=== PATIENT | male | born 1950 | race Two or more races ===

== ENCOUNTER 2021-06-15 05:55 | Inpatient (IN) | payer OTHER ==
[~2021-06-15] VITALS: Ht 177.8 cm; Wt 84.1 kg
[2021-06-15 07:31] LABS: Calcium 7.9 mg/dL (8.5-10.1); Potassium 3.7 mmol/L (3.5-5.1)
[2021-06-15 07:36] LABS: BUN/Creatinine Ratio 13.1
[2021-06-15 07:39] LABS: Hematocrit 33.1 % (41.0-53.0); White Blood Cell 13.5 10^3/uL (4.4-10.8)
[2021-06-15 07:41] LABS: Hemoglobin 11.2 g/dL (13.5-17.5); Mean Corpuscular Hemoglobin 30.6 pg (28.0-32.0); Mean Corpuscular Hgb Conc. 33.9 g/dL (32.0-36.0); Mean Corpuscular Volume 90.2 fL (80.0-100.0); Red Blood Cells 3.67 10^6/uL (4.5-5.90); Red Cell Distribution Width 14.5 % (11.8-14.3)
[2021-06-15] MEDS ORDERED: ACETAMINOPHEN 500 MG TAB PO ONE (07:45)
[2021-06-15 07:53] LABS: Basophils % (manual) 0 (0.0-2.0); Blast Cells 0; Eosinophils % (manual) 0 (0-7); Metamyelocytes % 0; Myelocytes % 0; Promyelocytes % 0; Reactive Lymphocytes 0
[2021-06-15] MEDS ORDERED: ENOXAPARIN SOD 80 MG/0.8ML SYRINGE SC ONE (08:00)
[2021-06-15] MEDS ORDERED: ASPirin 81 mg TAB PO ONE (08:00)
[2021-06-15 08:57] LABS: Band Neutrophils % (manual) 3; Lymphocytes % (manual) 9 (10.0-50.0); Monocytes % (manual) 6 (0-12)
[2021-06-15] MEDS ORDERED: AZITHROMYCIN 500MG/ 250ML 250 ML IV ONE (09:00)
[2021-06-15] MEDS ORDERED: cefTRIAXone 1GM/50ML D5W 50 ML IV ONE (09:00)
[2021-06-15] MEDS ORDERED: IOHEXOL 350 MG/ML 100ML IJ ONE (10:01)
[2021-06-15 11:20] LABS: Urine WBC None Seen /hpf (0 - 3)
[2021-06-15] MEDS ORDERED: HEPARIN SODIUM (PORCINE) 5000 UNITS/ML 1ML VIAL IV ONE (11:30)
[2021-06-15 12:01] LABS: Urine Bacteria NONE SEEN /hpf (None Seen); Urine Blood Negative /uL (Negative); Urine Specific Gravity 1.015 (1.001-1.035)
[2021-06-15] MEDS ORDERED: ACETAMINOPHEN 325 MG TAB PO PRN (12:45)
[2021-06-15] MEDS ORDERED: MORPHINE SULFATE 4 MG/ML SYR/VIAL IV PRN (12:45)
[2021-06-15] MEDS ORDERED: ONDANSETRON HCL 4 MG/2 ML VIAL IV PRN (12:45)
[2021-06-15] MEDS ORDERED: HYDROcodone-ACET 5/325MG TAB PO PRN (12:45)
[2021-06-15] MEDS ORDERED: NITROGLYCERIN 0.4 MG SL TAB SL PRN (12:45)
[2021-06-15] MEDS ORDERED: MORPHINE SULFATE INJECTION 2 MG/ML SYRG IV PRN (12:45)
[2021-06-15] MEDS ORDERED: DEXTROSE (50%) 50ML SYRG IV PRN (13:00)
[2021-06-15] MEDS ORDERED: HEPARIN DRIP/D5W 100UNITS/ML 250 ML IV SCH (13:30)
[2021-06-15 15:32] LABS: INR 1.21 (0.9-1.15); Partial Thromboplastin Time 32.4 sec (23.6-33.0)
[2021-06-15] MEDS: InsuLIN REG 1unit/0.01ml Soln (100units/ml) SC SCH ×2 (17:00→22:00)
[2021-06-15] MEDS: ACCU-CHEK COMFORT CURVE STRIP VI SCH ×2 (17:23→22:00)
[2021-06-15 20:33] VITALS: BP 137/74
[2021-06-15] MEDS ORDERED: BUDESONIDE (INHALATION) 180 MCG IH IN SCH (22:00)
[2021-06-15 22:23] LABS: INR 1.16 (0.9-1.15)
[2021-06-15] MEDS: HEPARIN DRIP/D5W 100UNITS/ML 250 ML IV SCH (23:49)
[2021-06-15] MEDS: BUDESONIDE (INHALATION) 0.5 MG/2 ML NEB NEB SCH (23:58)
[2021-06-16] MEDS ORDERED: METO-289 PO (00:21)
[2021-06-16] MEDS ORDERED: AMLO5CAP40 PO (00:21)
[2021-06-16] MEDS ORDERED: LOVA20TA4 PO (00:21)
[2021-06-16] MEDS ORDERED: GLIM4TAB42 PO (00:21)
[2021-06-16] MEDS ORDERED: METF-370 PO (00:21)
[2021-06-16] MEDS ORDERED: CHLO25TA2 PO (00:21)
[2021-06-16] MEDS: THROAT LOZENGES(CEPASTAT) MT PRN ×2 (04:51→12:23)
[2021-06-16 05:30] VITALS: BP 145/100
[2021-06-16] MEDS: InsuLIN REG 1unit/0.01ml Soln (100units/ml) SC SCH ×4 (06:14→21:30)
[2021-06-16] MEDS: ACCU-CHEK COMFORT CURVE STRIP VI SCH ×4 (06:15→21:30)
[2021-06-16] MEDS: BUDESONIDE (INHALATION) 0.5 MG/2 ML NEB NEB SCH (06:15)
[2021-06-16 06:51] LABS: INR 1.17 (0.9-1.15); Partial Thromboplastin Time 38.4 sec (23.6-33.0)
[2021-06-16 06:53] LABS: Potassium 4.1 mmol/L (3.5-5.1)
[2021-06-16 06:57] LABS: Basophils # (auto) 0 10 ^3/uL (0-0.2); Basophils % (auto) 0.3 % (0.0-2.0); Eosinophils # (auto) 0.1 10 ^3/uL (0-0.8); Mean Corpuscular Hemoglobin 30.8 pg (28.0-32.0); Neutrophils # (auto) 7.7 10 ^3/uL (1.6-8.6); Nucleated Red Blood Cells % 0.1 %
[2021-06-16 07:00] LABS: BUN/Creatinine Ratio 9.2; Bilirubin, Total 0.7 mg/dL (0.2-1.0); Calcium 7.5 mg/dL (8.5-10.1); Eosinophils % (auto) 0.5 % (0.0-7.0); Hematocrit 32.7 % (41.0-53.0); Hemoglobin 11.1 g/dL (13.5-17.5); Lymphocytes # (auto) 1.8 10 ^3/uL (0.4-5.4); Lymphocytes % (auto) 16.6 % (10.0-50.0); Mean Corpuscular Volume 90.5 fL (80.0-100.0); Monocytes % (auto) 9.9 % (0.0-12.0); Neutrophils % (auto) 72.7 % (37.0-80.0); Red Blood Cells 3.62 10^6/uL (4.5-5.90); Red Cell Distribution Width 14.4 % (11.8-14.3); Total Protein 6.1 g/dL (6.4-8.2); White Blood Cell 10.6 10^3/uL (4.4-10.8)
[2021-06-16 07:38] LABS: INR 1.19 (0.9-1.15); Partial Thromboplastin Time 44.3 sec (23.6-33.0)
[2021-06-16 09:00] VITALS: BP 133/71
[2021-06-16] MEDS: AZITHROMYCIN 500MG/ 250ML 250 ML IV SCH (09:37)
[2021-06-16] MEDS: DexAMETHasone SOD PHOS 10MG/1ML VIAL INJ IV SCH (09:37)
[2021-06-16] MEDS: ASPirin 81 mg TAB PO SCH (09:37)
[2021-06-16] MEDS: cefTRIAXone 1GM/50ML D5W 50 ML IV SCH (09:37)
[2021-06-16] MEDS: CHOLECALCIFEROL (VITD3) 2,000 UNIT CAP/TAB PO SCH (09:38)
[2021-06-16] MEDS: ASCORBIC ACID 1,000 MG TAB PO SCH (09:38)
[2021-06-16] MEDS: ZINC SULFATE 220mg CAP or TAB PO SCH (09:38)
[2021-06-16] MEDS ORDERED: REMDESIVIR PER PHARMACY 0 ML IV SCH (10:00)
[2021-06-16 12:15] VITALS: BP 145/87
[2021-06-16 14:12] LABS: INR 1.2 (0.9-1.15)
[2021-06-16 14:15] LABS: Partial Thromboplastin Time 80.3 sec (23.6-33.0)
[2021-06-16] MEDS ORDERED: REMDESIVIR 200 MG in NS 210ml LOADING DOSE ADULT IV ONE (15:00)
[2021-06-16 16:21] VITALS: BP 145/79
[2021-06-16] MEDS: HEPARIN DRIP/D5W 100UNITS/ML 250 ML IV SCH (18:49)
[2021-06-16] MEDS: BUDESONIDE (INHALATION) 180 MCG IH IN SCH (21:14)
[2021-06-16 22:00] VITALS: BP 153/79
[2021-06-16 22:28] LABS: INR 1.2 (0.9-1.15); Partial Thromboplastin Time 60.5 sec (23.6-33.0)
[2021-06-17] MEDS: HEPARIN DRIP/D5W 100UNITS/ML 250 ML IV SCH ×3 (04:56→23:45)
[2021-06-17 05:00] VITALS: BP 141/80
[2021-06-17] MEDS: InsuLIN REG 1unit/0.01ml Soln (100units/ml) SC SCH ×4 (06:15→21:55)
[2021-06-17 06:17] LABS: Mean Corpuscular Hgb Conc. 33.8 g/dL (32.0-36.0)
[2021-06-17] MEDS: ACCU-CHEK COMFORT CURVE STRIP VI SCH ×4 (06:17→21:57)
[2021-06-17 06:19] LABS: Hematocrit 31.3 % (41.0-53.0); Hemoglobin 10.6 g/dL (13.5-17.5); Mean Corpuscular Volume 88.7 fL (80.0-100.0); Red Blood Cells 3.53 10^6/uL (4.5-5.90); Red Cell Distribution Width 14.4 % (11.8-14.3); White Blood Cell 10.6 10^3/uL (4.4-10.8)
[2021-06-17 06:22] LABS: INR 1.2 (0.9-1.15); Partial Thromboplastin Time 45.4 sec (23.6-33.0)
[2021-06-17 06:29] LABS: Potassium 4.1 mmol/L (3.5-5.1)
[2021-06-17 06:39] LABS: Basophils % (manual) 0 (0.0-2.0); Blast Cells 0; Eosinophils % (manual) 0 (0-7); Metamyelocytes % 0; Myelocytes % 0; Promyelocytes % 0; Reactive Lymphocytes 0
[2021-06-17 06:47] LABS: Albumin 2.1 g/dL (3.4-5.0); BUN/Creatinine Ratio 14.3; Bilirubin, Total 0.5 mg/dL (0.2-1.0); Calcium 8.3 mg/dL (8.5-10.1); Total Protein 6.2 g/dL (6.4-8.2)
[2021-06-17 08:34] VITALS: BP 125/71
[2021-06-17 08:42] LABS: Band Neutrophils % (manual) 5; Lymphocytes % (manual) 10 (10.0-50.0); Monocytes % (manual) 7 (0-12)
[2021-06-17] MEDS: cefTRIAXone 1GM/50ML D5W 50 ML IV SCH (09:54)
[2021-06-17] MEDS: ZINC SULFATE 220mg CAP or TAB PO SCH (09:55)
[2021-06-17] MEDS: DexAMETHasone SOD PHOS 10MG/1ML VIAL INJ IV SCH (09:55)
[2021-06-17] MEDS: ASPirin 81 mg TAB PO SCH (09:55)
[2021-06-17] MEDS: CHOLECALCIFEROL (VITD3) 2,000 UNIT CAP/TAB PO SCH (09:56)
[2021-06-17] MEDS: ASCORBIC ACID 1,000 MG TAB PO SCH (09:56)
[2021-06-17] MEDS: BUDESONIDE (INHALATION) 180 MCG IH IN SCH ×2 (10:00→19:45)
[2021-06-17] MEDS: AZITHROMYCIN 500MG/ 250ML 250 ML IV SCH (11:40)
[2021-06-17 11:52] LABS: INR 1.21 (0.9-1.15); Partial Thromboplastin Time 42.6 sec (23.6-33.0)
[2021-06-17 12:30] VITALS: BP 139/74
[2021-06-17] MEDS: REMDESIVIR 100mg 100 MG in SODIUM CHL 0.9% 230 ML IV SCH (14:56)
[2021-06-17 16:51] VITALS: BP 134/78
[2021-06-17 18:24] LABS: INR 1.24 (0.9-1.15); Partial Thromboplastin Time 50.4 sec (23.6-33.0)
[2021-06-17] MEDS: ALBUTEROL SULF HFA 90MCG INH 200DOSE IN PRN (19:45)
[2021-06-17 21:30] VITALS: BP 145/66
[2021-06-17] MEDS: THROAT LOZENGES(CEPASTAT) MT PRN (21:57)
[2021-06-18 02:35] LABS: INR 1.24 (0.9-1.15); Partial Thromboplastin Time 41.5 sec (23.6-33.0)
[2021-06-18 05:00] VITALS: BP 145/75
[2021-06-18] MEDS: ACCU-CHEK COMFORT CURVE STRIP VI SCH ×4 (06:10→21:45)
[2021-06-18] MEDS: InsuLIN REG 1unit/0.01ml Soln (100units/ml) SC SCH ×4 (06:15→21:48)
[2021-06-18 07:05] LABS: BUN/Creatinine Ratio 17.6; Calcium 8.3 mg/dL (8.5-10.1); Potassium 4.2 mmol/L (3.5-5.1)
[2021-06-18 07:12] LABS: Bilirubin, Total 0.4 mg/dL (0.2-1.0); Total Protein 5.9 g/dL (6.4-8.2)
[2021-06-18 09:00] VITALS: BP 153/85
[2021-06-18] MEDS ORDERED: LACTULOSE 20Gm/30ML SOLN PO ONE (09:15)
[2021-06-18 10:03] VITALS: BP 153/85
[2021-06-18 10:15] LABS: INR 1.3 (0.9-1.15); Partial Thromboplastin Time 68.3 sec (23.6-33.0)
[2021-06-18] MEDS ORDERED: SENNA 8.6 MG TAB PO PRN (11:00)
[2021-06-18] MEDS ORDERED: POLYETHYLENE GLYCOL 17 GM PWDR PO PRN (11:00)
[2021-06-18] MEDS ORDERED: DOCUSATE SOD 100 MG CAP PO PRN (11:00)
[2021-06-18] MEDS: DexAMETHasone SOD PHOS 10MG/1ML VIAL INJ IV SCH (11:32)
[2021-06-18] MEDS: cefTRIAXone 1GM/50ML D5W 50 ML IV SCH (11:32)
[2021-06-18] MEDS: ASCORBIC ACID 1,000 MG TAB PO SCH (11:33)
[2021-06-18] MEDS: CHOLECALCIFEROL (VITD3) 2,000 UNIT CAP/TAB PO SCH (11:33)
[2021-06-18] MEDS: ZINC SULFATE 220mg CAP or TAB PO SCH (11:33)
[2021-06-18] MEDS: ASPirin 81 mg TAB PO SCH (11:33)
[2021-06-18] MEDS: AZITHROMYCIN 500MG/ 250ML 250 ML IV SCH (11:34)
[2021-06-18] MEDS: HEPARIN DRIP/D5W 100UNITS/ML 250 ML IV SCH (11:52)
[2021-06-18 12:30] VITALS: BP 160/73
[2021-06-18] MEDS: REMDESIVIR 100mg 100 MG in SODIUM CHL 0.9% 230 ML IV SCH (14:35)
[2021-06-18] MEDS: BUDESONIDE (INHALATION) 180 MCG IH IN SCH ×2 (15:28→22:00)
[2021-06-18] MEDS: ALBUTEROL SULF HFA 90MCG INH 200DOSE IN PRN ×2 (15:28→23:17)
[2021-06-18 15:42] LABS: INR 1.3 (0.9-1.15); Partial Thromboplastin Time 53.2 sec (23.6-33.0)
[2021-06-18] MEDS ORDERED: hydrALAZINE HCL 20 MG/ML VL IV PRN (16:15)
[2021-06-18 16:25] VITALS: BP 148/76
[2021-06-18] MEDS: APIXABAN 5 MG TAB PO SCH (17:03)
[2021-06-18 21:59] VITALS: BP 155/73
[2021-06-19] MEDS: APIXABAN 5 MG TAB PO SCH ×2 (05:00→17:00)
[2021-06-19 05:34] VITALS: BP 154/75
[2021-06-19] MEDS: ALBUTEROL SULF HFA 90MCG INH 200DOSE IN PRN (06:15)
[2021-06-19] MEDS: BUDESONIDE (INHALATION) 180 MCG IH IN SCH (06:15)
[2021-06-19] MEDS: ACCU-CHEK COMFORT CURVE STRIP VI SCH ×3 (06:21→17:00)
[2021-06-19] MEDS: InsuLIN REG 1unit/0.01ml Soln (100units/ml) SC SCH ×3 (06:25→17:00)
[2021-06-19 07:17] LABS: Albumin 2.2 g/dL (3.4-5.0); BUN/Creatinine Ratio 18.9; Calcium 8.5 mg/dL (8.5-10.1); Potassium 4.8 mmol/L (3.5-5.1)
[2021-06-19 08:14] LABS: Bilirubin, Total 0.4 mg/dL (0.2-1.0)
[2021-06-19 08:44] VITALS: BP 146/79
[2021-06-19] MEDS: cefTRIAXone 1GM/50ML D5W 50 ML IV SCH (10:21)
[2021-06-19] MEDS: DexAMETHasone SOD PHOS 10MG/1ML VIAL INJ IV SCH (10:21)
[2021-06-19] MEDS: ASCORBIC ACID 1,000 MG TAB PO SCH (10:22)
[2021-06-19] MEDS: ZINC SULFATE 220mg CAP or TAB PO SCH (10:22)
[2021-06-19] MEDS: AZITHROMYCIN 500MG/ 250ML 250 ML IV SCH (10:22)
[2021-06-19] MEDS: ASPirin 81 mg TAB PO SCH (10:22)
[2021-06-19] MEDS: CHOLECALCIFEROL (VITD3) 2,000 UNIT CAP/TAB PO SCH (10:23)
[2021-06-19 13:00] VITALS: BP 150/77
[2021-06-19] MEDS: REMDESIVIR 100mg 100 MG in SODIUM CHL 0.9% 230 ML IV SCH (15:00)
[2021-06-19 16:11] VITALS: BP 146/74
[2021-06-25] MEDS ORDERED: APIXABAN 5 MG TAB PO SCH (17:00)
== END 2021-06-19 17:30 | disposition home or self-care (01) | DRG 177 ==
LOC: EDBD 05:55 → ER 05:55 → TELE 12:51 → TELE-EAST 22:30
PROVIDERS: ADMIT Internal Medicine; ATTEND Internal Medicine
PROC: XW033E5 Introduction of Remdesivir Anti-infective into Peripheral Vein, Percutaneous Approach, New Technology Group 5 (ICD-10-PCS; principal; 2021-06-16)
DX: U07.1 COVID-19 (principal); J12.82 Pneumonia due to coronavirus disease 2019; I26.99 Other pulmonary embolism without acute cor pulmonale; J96.01 Acute respiratory failure with hypoxia; E87.1 Hypo-osmolality and hyponatremia; E66.9 Obesity, unspecified; E11.65 Type 2 diabetes mellitus with hyperglycemia; I10 Essential (primary) hypertension; Z78.9 Other specified health status; Z79.01 Long term (current) use of anticoagulants; Z68.25 Body mass index [BMI] 25.0-25.9, adult
CPT/HCPCS: 36415; 70450; 71275; 73562; 80048; 80053; 81001; 82728; 82962; 84484; 85007; 85025; 85027; 85610; 85730; 86141; 87426; 93005; 93306; 93970; 94640; 95819; 96365; 96367; 96372; 99291; G0378; J0696; J1100; J1815

== ENCOUNTER 2022-10-12 21:14 | Inpatient (IN) | payer OTHER ==
[~2022-10-12] VITALS: Ht 167.6 cm; Wt 88.5 kg
[~2022-10-12 21:14] MED LIST: AMLO5CAP40 PO; CHLO25TA2 PO; GLIM4TAB42 PO; LOVA20TA4 PO; METF-370 PO; METO-289 PO
[2022-10-12 22:16] VITALS: BP 156/73
[2022-10-12] MEDS ORDERED: NITROGLYCERIN 0.4 MG SL TAB SL PRN (23:00)
[2022-10-12] MEDS ORDERED: DOCUSATE SOD 100 MG CAP PO PRN (23:00)
[2022-10-12] MEDS ORDERED: ONDANSETRON HCL 4 MG/2 ML VIAL IV PRN (23:00)
[2022-10-12] MEDS ORDERED: MORPHINE SULFATE INJ 2 MG/ml SYRG IV PRN (23:00)
[2022-10-12] MEDS ORDERED: DEXTROSE (50%) 50ML SYRG IV PRN (23:00)
[2022-10-12] MEDS ORDERED: ACETAMINOPHEN 325 MG TAB PO PRN (23:00)
[2022-10-12] MEDS ORDERED: VANCOMYCIN PER PHARMACY 0 MG IV SCH (23:00)
[2022-10-12] MEDS ORDERED: VANCOMYCIN 1GM/250ML 250 ML IV ONE (23:30)
[2022-10-12] MEDS: HYDROcodone-ACET 5/325MG TAB PO PRN (23:37)
[2022-10-12] MEDS: SODIUM CHLORIDE 0.9% 1,000 ML IV SCH (23:45)
[2022-10-13 00:15] LABS: Basophils # (auto) 0 10 ^3/uL (0-0.2); Basophils % (auto) 0.1 % (0.0-2.0); Eosinophils # (auto) 0.3 10 ^3/uL (0-0.8); Eosinophils % (auto) 1.9 % (0.0-7.0); Hematocrit 28.6 % (41.0-53.0); Lymphocytes # (auto) 2.2 10 ^3/uL (0.4-5.4); Lymphocytes % (auto) 15.1 % (10.0-50.0); Mean Corpuscular Hemoglobin 27.7 pg (28.0-32.0); Mean Corpuscular Volume 79.2 fL (80.0-100.0); Monocytes % (auto) 6.5 % (0.0-12.0); Neutrophils # (auto) 11.2 10 ^3/uL (1.6-8.6); Neutrophils % (auto) 76.4 % (37.0-80.0); Nucleated Red Blood Cells % 0.4 %; Red Blood Cells 3.61 10^6/uL (4.5-5.90); Red Cell Distribution Width 14.1 % (11.8-14.3); White Blood Cell 14.6 10^3/uL (4.4-10.8)
[2022-10-13 00:23] LABS: BUN/Creatinine Ratio 21.9 (10.0-20.0); Calcium 9.7 mg/dL (8.5-10.1); Potassium 4.3 mmol/L (3.5-5.1)
[2022-10-13] MEDS: PIPERACILLIN-TAZOB 3.375GM 100 ML IV SCH ×3 (01:37→14:59)
[2022-10-13] MEDS: HYDROcodone-ACET 5/325MG TAB PO PRN ×5 (04:30→21:35)
[2022-10-13 05:07] VITALS: BP 137/54
[2022-10-13 05:46] LABS: Basophils # (auto) 0 10 ^3/uL (0-0.2); Basophils % (auto) 0.2 % (0.0-2.0); Eosinophils # (auto) 0.3 10 ^3/uL (0-0.8); Eosinophils % (auto) 2.2 % (0.0-7.0); Hematocrit 29.5 % (41.0-53.0); Hemoglobin 10.1 g/dL (13.5-17.5); Lymphocytes # (auto) 1.7 10 ^3/uL (0.4-5.4); Lymphocytes % (auto) 13.6 % (10.0-50.0); Mean Corpuscular Hemoglobin 27.6 pg (28.0-32.0); Mean Corpuscular Hgb Conc. 34.3 g/dL (32.0-36.0); Mean Corpuscular Volume 80.4 fL (80.0-100.0); Monocytes # (auto) 1.1 10 ^3/uL (0-1.3); Monocytes % (auto) 8.5 % (0.0-12.0); Neutrophils # (auto) 9.5 10 ^3/uL (1.6-8.6); Neutrophils % (auto) 75.5 % (37.0-80.0); Red Blood Cells 3.67 10^6/uL (4.5-5.90); Red Cell Distribution Width 14.1 % (11.8-14.3); White Blood Cell 12.6 10^3/uL (4.4-10.8)
[2022-10-13 06:10] LABS: BUN/Creatinine Ratio 21.4 (10.0-20.0); Calcium 9.5 mg/dL (8.5-10.1); Potassium 4.2 mmol/L (3.5-5.1)
[2022-10-13] MEDS: ACCU-CHEK COMFORT CURVE STRIP VI SCH ×4 (06:17→23:02)
[2022-10-13] MEDS: InsuLIN REG 1unit/0.01ml Soln (100units/ml) SC SCH ×4 (06:20→23:17)
[2022-10-13 08:34] VITALS: BP 127/51
[2022-10-13] MEDS: SODIUM CHLORIDE 0.9% 1,000 ML IV SCH ×2 (12:20→23:03)
[2022-10-13 12:37] LABS: Protein, Urine 13.1 mg/dL (0.0-11.9)
[2022-10-13] MEDS: VANCOMYCIN 1GM/250ML 250 ML IV SCH ×2 (12:40→23:03)
[2022-10-13 12:47] VITALS: BP 143/54
[2022-10-13 12:52] LABS: Urine Bacteria NONE SEEN /hpf (None Seen); Urine Blood Negative /uL (Negative); Urine Specific Gravity 1.011 (1.001-1.035); Urine WBC 2 /hpf (0 - 3)
[2022-10-13 16:44] VITALS: BP 142/64
[2022-10-13 22:00] VITALS: BP 149/70
[2022-10-13] MEDS: amLODIPine BESYLATE 5 MG TAB PO SCH (23:01)
[2022-10-13] MEDS: METOPROLOL SUCCINATE XL 50 MG TAB PO SCH (23:02)
[2022-10-13] MEDS: INSULIN LANTUS (GLARGINE) 1 /0.01ml (100units/ml) SC SCH (23:17)
[2022-10-14] MEDS: PIPERACILLIN-TAZOB 3.375GM 100 ML IV SCH ×2 (01:42→09:29)
[2022-10-14 05:00] VITALS: BP 120/39
[2022-10-14] MEDS: ACCU-CHEK COMFORT CURVE STRIP VI SCH ×4 (06:06→21:57)
[2022-10-14] MEDS: InsuLIN REG 1unit/0.01ml Soln (100units/ml) SC SCH ×4 (06:06→21:48)
[2022-10-14 06:56] LABS: Basophils # (auto) 0.1 10 ^3/uL (0-0.2); Basophils % (auto) 0.4 % (0.0-2.0); Eosinophils # (auto) 0.3 10 ^3/uL (0-0.8); Eosinophils % (auto) 2.5 % (0.0-7.0); Hemoglobin 10.2 g/dL (13.5-17.5); Lymphocytes % (auto) 15.6 % (10.0-50.0); Mean Corpuscular Hemoglobin 27.6 pg (28.0-32.0); Mean Corpuscular Hgb Conc. 35.2 g/dL (32.0-36.0); Mean Corpuscular Volume 78.3 fL (80.0-100.0); Monocytes # (auto) 1.1 10 ^3/uL (0-1.3); Monocytes % (auto) 8.4 % (0.0-12.0); Neutrophils # (auto) 9.3 10 ^3/uL (1.6-8.6); Neutrophils % (auto) 73.1 % (37.0-80.0); White Blood Cell 12.8 10^3/uL (4.4-10.8)
[2022-10-14 07:22] LABS: Potassium 3.8 mmol/L (3.5-5.1)
[2022-10-14 07:30] LABS: BUN/Creatinine Ratio 11.9 (10.0-20.0); Calcium 9.5 mg/dL (8.5-10.1)
[2022-10-14 08:46] LABS: INR 1.13 (0.9-1.15); Partial Thromboplastin Time 32.6 sec (24.6-33.4)
[2022-10-14 09:00] VITALS: BP 146/67
[2022-10-14] MEDS: SODIUM CHLORIDE 0.9% 1,000 ML IV SCH ×3 (09:29→23:01)
[2022-10-14] MEDS: amLODIPine BESYLATE 5 MG TAB PO SCH (09:29)
[2022-10-14] MEDS: METOPROLOL SUCCINATE XL 50 MG TAB PO SCH (09:30)
[2022-10-14 12:52] VITALS: BP 108/63
[2022-10-14] MEDS: HYDROcodone-ACET 5/325MG TAB PO PRN ×2 (15:41→21:28)
[2022-10-14] MEDS ORDERED: CEFTRIAXONE SODIUM 2 GM in D5W 5% 100 ML IV ONE (16:00)
[2022-10-14 16:54] VITALS: BP 147/63
[2022-10-14] MEDS ORDERED: VANCOMYCIN 1GM/250ML 250 ML IV SCH (17:00)
[2022-10-14] MEDS: AMPICILLIN & SULBACTAM SODIUM 3 GM in SODIUM CHL 0.9% 100 ML IV SCH (17:48)
[2022-10-14] MEDS: INSULIN LANTUS (GLARGINE) 1 /0.01ml (100units/ml) SC SCH (21:57)
[2022-10-14 22:00] VITALS: BP 154/48
[2022-10-14] MEDS ORDERED: ATORVASTATIN 20 MG TAB PO SCH (22:00)
[2022-10-15] MEDS: AMPICILLIN & SULBACTAM SODIUM 3 GM in SODIUM CHL 0.9% 100 ML IV SCH ×4 (00:37→18:00)
[2022-10-15] MEDS: HYDROcodone-ACET 5/325MG TAB PO PRN ×2 (03:29→10:02)
[2022-10-15 05:00] VITALS: BP 152/60
[2022-10-15] MEDS: ACCU-CHEK COMFORT CURVE STRIP VI SCH ×3 (06:09→17:00)
[2022-10-15 06:12] LABS: Basophils # (auto) 0 10 ^3/uL (0-0.2); Basophils % (auto) 0.3 % (0.0-2.0); Eosinophils # (auto) 0.4 10 ^3/uL (0-0.8); Eosinophils % (auto) 3.5 % (0.0-7.0); Hematocrit 29.8 % (41.0-53.0); Lymphocytes # (auto) 2.1 10 ^3/uL (0.4-5.4); Lymphocytes % (auto) 18.1 % (10.0-50.0); Mean Corpuscular Hemoglobin 27.4 pg (28.0-32.0); Mean Corpuscular Hgb Conc. 33.7 g/dL (32.0-36.0); Mean Corpuscular Volume 81.4 fL (80.0-100.0); Monocytes # (auto) 1.1 10 ^3/uL (0-1.3); Monocytes % (auto) 9.1 % (0.0-12.0); Neutrophils # (auto) 8.1 10 ^3/uL (1.6-8.6); Red Blood Cells 3.66 10^6/uL (4.5-5.90); White Blood Cell 11.8 10^3/uL (4.4-10.8)
[2022-10-15] MEDS: InsuLIN REG 1unit/0.01ml Soln (100units/ml) SC SCH ×3 (06:12→17:00)
[2022-10-15 06:29] LABS: BUN/Creatinine Ratio 12.3 (10.0-20.0); Calcium 9.7 mg/dL (8.5-10.1)
[2022-10-15 09:00] VITALS: BP 167/102
[2022-10-15] MEDS: amLODIPine BESYLATE 5 MG TAB PO SCH (09:52)
[2022-10-15] MEDS: METOPROLOL SUCCINATE XL 50 MG TAB PO SCH (09:52)
[2022-10-15] MEDS ORDERED: CEFTRIAXONE SODIUM 2 GM in D5W 5% 100 ML IV SCH (10:00)
[2022-10-15 13:21] VITALS: BP 172/65
[2022-10-15] MEDS ORDERED: LISINOPRIL 20 MG TAB PO SCH (13:30)
[2022-10-15] MEDS ORDERED: AMOX-277 PO (13:31)
[2022-10-15] MEDS: SODIUM CHLORIDE 0.9% 1,000 ML IV SCH (14:30)
[2022-10-15] MEDS ORDERED: HYDR1TAB97 PO (16:22)
[2022-10-15 17:00] VITALS: BP 163/88
[2022-10-15 17:27] VITALS: BP 167/86
== END 2022-10-15 19:20 | disposition home health service (06) | DRG 872 ==
LOC: EAST 22:06 → TELE-EAST 23:16
PROVIDERS: ADMIT Internal Medicine; ATTEND Nurse Practitioner Family
DX: A41.9 Sepsis, unspecified organism (principal); E87.1 Hypo-osmolality and hyponatremia; N17.9 Acute kidney failure, unspecified; D64.9 Anemia, unspecified; E11.65 Type 2 diabetes mellitus with hyperglycemia; E11.22 Type 2 diabetes mellitus with diabetic chronic kidney disease; I12.9 Hypertensive chronic kidney disease with stage 1 through stage 4 chronic kidney disease, or unspecified chronic kidney disease; N18.2 Chronic kidney disease, stage 2 (mild); L03.032 Cellulitis of left toe; Z86.711 Personal history of pulmonary embolism; Z20.822 Contact with and (suspected) exposure to COVID-19
CPT/HCPCS: 36415; 71045; 73718; 76775; 80048; 80202; 81001; 82570; 82962; 83036; 84156; 85025; 85610; 85730; 87081; 87426; 97110; 97116; 97163; G0378; J0696; J1815; J2543; J7060

== ENCOUNTER 2022-10-19 14:09 | Inpatient (IN) | payer OTHER ==
[~2022-10-19] VITALS: Ht 167.6 cm; Wt 95.0 kg
[~2022-10-19 14:09] MED LIST changes: +AMOX-277 PO; +HYDR1TAB97 PO
[2022-10-19] MEDS ORDERED: PIPERACILLIN-TAZOB 3.375GM 100 ML IV ONE (14:45)
[2022-10-19 15:21] LABS: Urine Bacteria NONE SEEN /hpf (None Seen); Urine Blood Negative /uL (Negative); Urine Specific Gravity 1.013 (1.001-1.035); Urine WBC 2 /hpf (0 - 3)
[2022-10-19 15:54] LABS: Basophils # (auto) 0 10 ^3/uL (0-0.2); Hematocrit 29.3 % (41.0-53.0); Monocytes # (auto) 0.7 10 ^3/uL (0-1.3)
[2022-10-19 15:56] LABS: Basophils % (auto) 0.4 % (0.0-2.0); Eosinophils # (auto) 0.3 10 ^3/uL (0-0.8); Eosinophils % (auto) 3.1 % (0.0-7.0); Hemoglobin 9.7 g/dL (13.5-17.5); Lymphocytes # (auto) 2.1 10 ^3/uL (0.4-5.4); Lymphocytes % (auto) 19.1 % (10.0-50.0); Mean Corpuscular Hemoglobin 27.2 pg (28.0-32.0); Mean Corpuscular Hgb Conc. 32.9 g/dL (32.0-36.0); Mean Corpuscular Volume 82.5 fL (80.0-100.0); Monocytes % (auto) 6.7 % (0.0-12.0); Neutrophils # (auto) 7.9 10 ^3/uL (1.6-8.6); Neutrophils % (auto) 70.7 % (37.0-80.0); Nucleated Red Blood Cells % 0.1 %; Red Blood Cells 3.55 10^6/uL (4.5-5.90); Red Cell Distribution Width 13.8 % (11.8-14.3); White Blood Cell 11.1 10^3/uL (4.4-10.8)
[2022-10-19 16:05] LABS: Albumin 3.1 g/dL (3.4-5.0); Calcium 9.4 mg/dL (8.5-10.1); Potassium 4.4 mmol/L (3.5-5.1)
[2022-10-19 16:09] LABS: BUN/Creatinine Ratio 13.6 (10.0-20.0); Bilirubin, Total 0.4 mg/dL (0.2-1.0); Total Protein 8.7 g/dL (6.4-8.2)
[2022-10-19] MEDS ORDERED: MORPHINE SULFATE INJ 2 MG/ml SYRG IV PRN (18:45)
[2022-10-19] MEDS ORDERED: SODIUM CHLORIDE 0.9% 1,000 ML IV ONE (18:45)
[2022-10-19] MEDS ORDERED: DEXTROSE (50%) 50ML SYRG IV PRN (18:45)
[2022-10-19] MEDS ORDERED: VANCOMYCIN PER PHARMACY 0 MG IV SCH (18:45)
[2022-10-19] MEDS ORDERED: NITROGLYCERIN 0.4 MG SL TAB SL PRN (18:45)
[2022-10-19] MEDS: SODIUM CHLORIDE 0.9% 1,000 ML IV SCH (18:45)
[2022-10-19] MEDS ORDERED: ACETAMINOPHEN 325 MG TAB PO PRN (18:45)
[2022-10-19] MEDS ORDERED: PANTOPRAZOLE 40 MG/10 ML VIAL INJ IV ONE (19:00)
[2022-10-19] MEDS ORDERED: VANCOMYCIN 1GM/250ML 250 ML IV SCH (20:00)
[2022-10-19 20:21] LABS: INR 1.08 (0.9-1.15); Partial Thromboplastin Time 32.8 sec (24.6-33.4)
[2022-10-19] MEDS ORDERED: VANCOMYCIN 1GM/250ML 250 ML IV ONE (21:30)
[2022-10-19] MEDS: HEPARIN SODIUM (PORCINE) 5000 UNITS/ML 1ML VIAL SC SCH (23:07)
[2022-10-19] MEDS: HYDROcodone-ACET 5/325MG TAB PO PRN (23:08)
[2022-10-20] MEDS: ACCU-CHEK COMFORT CURVE STRIP VI SCH ×5 (02:43→23:51)
[2022-10-20] MEDS: InsuLIN REG 1unit/0.01ml Soln (100units/ml) SC SCH ×5 (02:48→23:50)
[2022-10-20] MEDS: CEFEPIME 1GM/ 50ML 50 ML IV SCH ×2 (04:30→10:00)
[2022-10-20 05:59] LABS: Basophils # (auto) 0 10 ^3/uL (0-0.2); Basophils % (auto) 0.3 % (0.0-2.0); Eosinophils # (auto) 0.3 10 ^3/uL (0-0.8); Hematocrit 29.1 % (41.0-53.0); Hemoglobin 9.8 g/dL (13.5-17.5); Lymphocytes # (auto) 2.1 10 ^3/uL (0.4-5.4); Mean Corpuscular Hemoglobin 27.6 pg (28.0-32.0); Mean Corpuscular Hgb Conc. 33.8 g/dL (32.0-36.0); Mean Corpuscular Volume 81.6 fL (80.0-100.0); Monocytes # (auto) 0.9 10 ^3/uL (0-1.3); Monocytes % (auto) 8.5 % (0.0-12.0); Neutrophils # (auto) 7.2 10 ^3/uL (1.6-8.6); Neutrophils % (auto) 68.2 % (37.0-80.0); Red Blood Cells 3.57 10^6/uL (4.5-5.90); White Blood Cell 10.5 10^3/uL (4.4-10.8)
[2022-10-20 06:17] LABS: Potassium 3.8 mmol/L (3.5-5.1)
[2022-10-20 06:25] LABS: Albumin 2.9 g/dL (3.4-5.0); BUN/Creatinine Ratio 13.5 (10.0-20.0); Bilirubin, Total 0.4 mg/dL (0.2-1.0); Calcium 9.3 mg/dL (8.5-10.1); Total Protein 8.2 g/dL (6.4-8.2)
[2022-10-20] MEDS: SODIUM CHLORIDE 0.9% 1,000 ML IV SCH ×2 (06:31→15:21)
[2022-10-20] MEDS: MORPHINE SULFATE INJ 2 MG/ml SYRG IV PRN ×2 (08:42→20:35)
[2022-10-20] MEDS ORDERED: PANTOPRAZOLE 40 MG/10 ML VIAL INJ IV SCH (10:00)
[2022-10-20] MEDS: CHLORTHALIDONE 25 MG PO SCH (10:00)
[2022-10-20] MEDS: AMLODIPINE BESYLATE BENAZEPRIL PO SCH (10:00)
[2022-10-20] MEDS: PRAVASTATIN SODIUM 20 MG TAB PO SCH (10:20)
[2022-10-20] MEDS: METOPROLOL SUCCINATE XL 50 MG TAB PO SCH (10:24)
[2022-10-20] MEDS: HEPARIN SODIUM (PORCINE) 5000 UNITS/ML 1ML VIAL SC SCH ×2 (10:25→22:35)
[2022-10-20] MEDS: hydrALAZINE HCL 20 MG/ML VL IV PRN (12:26)
[2022-10-20] MEDS: HYDROcodone-ACET 5/325MG TAB PO PRN (15:21)
[2022-10-20 21:49] VITALS: BP 158/81
[2022-10-21] MEDS: SODIUM CHLORIDE 0.9% 1,000 ML IV SCH ×2 (00:45→10:45)
[2022-10-21] MEDS: VANCOMYCIN 1GM/250ML 250 ML IV SCH (03:15)
[2022-10-21 04:52] VITALS: BP 166/69
[2022-10-21] MEDS: MORPHINE SULFATE INJ 2 MG/ml SYRG IV PRN (05:51)
[2022-10-21] MEDS: InsuLIN REG 1unit/0.01ml Soln (100units/ml) SC SCH ×3 (06:00→17:31)
[2022-10-21] MEDS: ACCU-CHEK COMFORT CURVE STRIP VI SCH ×3 (06:04→17:29)
[2022-10-21 06:35] LABS: Basophils # (auto) 0 10 ^3/uL (0-0.2); Basophils % (auto) 0.3 % (0.0-2.0); Eosinophils # (auto) 0.3 10 ^3/uL (0-0.8); Eosinophils % (auto) 2.7 % (0.0-7.0); Hemoglobin 10.4 g/dL (13.5-17.5); Neutrophils % (auto) 66.3 % (37.0-80.0); Red Cell Distribution Width 14.2 % (11.8-14.3)
[2022-10-21 06:38] LABS: Hematocrit 30.5 % (41.0-53.0); Lymphocytes # (auto) 2.6 10 ^3/uL (0.4-5.4); Lymphocytes % (auto) 22.7 % (10.0-50.0); Mean Corpuscular Hemoglobin 27.2 pg (28.0-32.0); Mean Corpuscular Hgb Conc. 33.9 g/dL (32.0-36.0); Mean Corpuscular Volume 80.1 fL (80.0-100.0); Monocytes # (auto) 0.9 10 ^3/uL (0-1.3); Neutrophils # (auto) 7.7 10 ^3/uL (1.6-8.6); Nucleated Red Blood Cells % 0.1 %; Red Blood Cells 3.81 10^6/uL (4.5-5.90); White Blood Cell 11.5 10^3/uL (4.4-10.8)
[2022-10-21 06:39] LABS: Potassium 3.8 mmol/L (3.5-5.1)
[2022-10-21 06:45] LABS: Albumin 3.2 g/dL (3.4-5.0); BUN/Creatinine Ratio 11.3 (10.0-20.0); Bilirubin, Total 0.4 mg/dL (0.2-1.0); INR 1.09 (0.9-1.15); Partial Thromboplastin Time 32.4 sec (24.6-33.4); Total Protein 8.8 g/dL (6.4-8.2)
[2022-10-21] MEDS: hydrALAZINE HCL 20 MG/ML VL IV PRN ×2 (07:01→14:42)
[2022-10-21 09:00] VITALS: BP 153/71
[2022-10-21] MEDS ORDERED: BUPIVACAINE 0.25% INJ 50ML VIAL ONE (09:33)
[2022-10-21] MEDS ORDERED: MIDAZOLAM HCL 2MG/2ML 2ml VIAL (1mg/ml) ONE (09:55)
[2022-10-21] MEDS ORDERED: MEPERIDINE HCL (25 MG/ML) 1ML VIAL ONE (09:55)
[2022-10-21] MEDS ORDERED: fentaNYL CITRATE 100 MCG/2 ML VL ONE (09:55)
[2022-10-21] MEDS: PRAVASTATIN SODIUM 20 MG TAB PO SCH (10:00)
[2022-10-21] MEDS: AMLODIPINE BESYLATE BENAZEPRIL PO SCH (10:00)
[2022-10-21] MEDS: CHLORTHALIDONE 25 MG PO SCH (10:00)
[2022-10-21] MEDS: METOPROLOL SUCCINATE XL 50 MG TAB PO SCH (10:00)
[2022-10-21] MEDS: CEFTRIAXONE SODIUM 2 GM in D5W 5% 100 ML IV SCH (10:00)
[2022-10-21] MEDS: HEPARIN SODIUM (PORCINE) 5000 UNITS/ML 1ML VIAL SC SCH ×2 (10:00→21:12)
[2022-10-21] MEDS ORDERED: PROPOFOL 10 MG/ML 20 ML IV ONE (10:00)
[2022-10-21] MEDS ORDERED: DexAMETHasone SOD PHOS 10MG/1ML VIAL INJ ONE (10:00)
[2022-10-21] MEDS ORDERED: ePHEDrine SULFATE 50 MG/ML AMP IV PRN (10:45)
[2022-10-21] MEDS ORDERED: MORPHINE SULFATE 4 MG/ML SYR/VIAL IV PRN (10:45)
[2022-10-21] MEDS ORDERED: MIDAZOLAM HCL 2MG/2ML 2ml VIAL (1mg/ml) IV PRN (10:45)
[2022-10-21] MEDS ORDERED: LABETALOL HCL 5 MG/ML 4ML SYRINGE IV PRN (10:45)
[2022-10-21] MEDS ORDERED: ONDANSETRON HCL 4 MG/2 ML VIAL IV PRN (10:45)
[2022-10-21] MEDS ORDERED: ACCU-CHEK COMFORT CURVE STRIP VI ONE (10:45)
[2022-10-21] MEDS: HYDROmorphone HCL 2 MG/ML VL/or syr IV PRN ×4 (10:55→11:25)
[2022-10-21 13:00] VITALS: BP 184/52
[2022-10-21] MEDS: HYDROcodone-ACET 5/325MG TAB PO PRN ×2 (14:42→21:11)
[2022-10-21 16:40] VITALS: BP 164/66
[2022-10-21 22:00] VITALS: BP 150/65
[2022-10-22] MEDS: ACCU-CHEK COMFORT CURVE STRIP VI SCH ×3 (00:14→12:00)
[2022-10-22] MEDS: InsuLIN REG 1unit/0.01ml Soln (100units/ml) SC SCH ×3 (00:16→12:00)
[2022-10-22] MEDS: HYDROcodone-ACET 5/325MG TAB PO PRN ×2 (00:51→13:36)
[2022-10-22] MEDS: VANCOMYCIN 1GM/250ML 250 ML IV SCH (02:56)
[2022-10-22] MEDS: MORPHINE SULFATE INJ 2 MG/ml SYRG IV PRN ×2 (04:36→17:09)
[2022-10-22 05:00] VITALS: BP 158/72
[2022-10-22] MEDS: SODIUM CHLORIDE 0.9% 1,000 ML IV SCH (06:45)
[2022-10-22 08:00] VITALS: BP 151/57
[2022-10-22] MEDS: PRAVASTATIN SODIUM 20 MG TAB PO SCH (10:00)
[2022-10-22] MEDS: CHLORTHALIDONE 25 MG PO SCH (10:00)
[2022-10-22] MEDS: METOPROLOL SUCCINATE XL 50 MG TAB PO SCH (10:00)
[2022-10-22] MEDS: AMLODIPINE BESYLATE BENAZEPRIL PO SCH (10:00)
[2022-10-22] MEDS: HEPARIN SODIUM (PORCINE) 5000 UNITS/ML 1ML VIAL SC SCH (10:00)
[2022-10-22] MEDS: CEFTRIAXONE SODIUM 2 GM in D5W 5% 100 ML IV SCH (10:00)
[2022-10-22] MEDS ORDERED: AMOX-277 PO (10:16)
[2022-10-22] MEDS ORDERED: HYDR1TAB97 PO (10:16)
[2022-10-22 12:10] VITALS: BP 159/66
[2022-10-22 16:05] VITALS: BP 166/70
[2022-10-22 20:19] VITALS: BP 151/57
== END 2022-10-22 21:15 | disposition home health service (06) | DRG 617 ==
LOC: ER 14:09 → OVERFLOW 18:47 → WEST WING 10-20 14:40
PROVIDERS: ADMIT Registered Nurse; ATTEND Internal Medicine
PROC: 0Y6Y0Z0 Detachment at Left 5th Toe, Complete, Open Approach (ICD-10-PCS; principal; 2022-10-21 09:55)
DX: E11.621 Type 2 diabetes mellitus with foot ulcer (principal); E11.52 Type 2 diabetes mellitus with diabetic peripheral angiopathy with gangrene; E11.69 Type 2 diabetes mellitus with other specified complication; N17.9 Acute kidney failure, unspecified; E78.5 Hyperlipidemia, unspecified; L97.529 Non-pressure chronic ulcer of other part of left foot with unspecified severity; E11.65 Type 2 diabetes mellitus with hyperglycemia; N18.32 Chronic kidney disease, stage 3b; E11.22 Type 2 diabetes mellitus with diabetic chronic kidney disease; I12.9 Hypertensive chronic kidney disease with stage 1 through stage 4 chronic kidney disease, or unspecified chronic kidney disease; Z86.711 Personal history of pulmonary embolism; Z20.822 Contact with and (suspected) exposure to COVID-19
CPT/HCPCS: 36415; 71045; 73700; 73718; 80053; 81001; 82962; 83605; 83880; 84484; 85025; 85610; 85730; 86850; 86900; 86901; 87040; 87070; 87075; 87077; 87186; 87205; 87426; 93926; 97163; C9113; G0378; J0696; J1100; J1815; J2250; J2543; J2704; J3490; J7060

== ENCOUNTER 2023-01-06 07:59 | Inpatient (IN) | payer OTHER ==
[~2023-01-06] VITALS: Ht 172.7 cm; Wt 77.3 kg
[~2023-01-06 07:59] MED LIST changes: +AMLO5CAP2 PO; -AMLO5CAP40 PO; -AMOX-277 PO; +AMOX875T4 PO
[2023-01-06] MEDS ORDERED: SODIUM CHLORIDE 0.9% 1,000 ML IVB ONE (08:15)
[2023-01-06 08:43] LABS: Basophils # (auto) 0 10 ^3/uL (0-0.2); Basophils % (auto) 0.1 % (0.0-2.0); Hemoglobin 7.9 g/dL (13.5-17.5); Lymphocytes # (auto) 1.4 10 ^3/uL (0.4-5.4); Red Cell Distribution Width 15.6 % (11.8-14.3)
[2023-01-06 08:44] LABS: Eosinophils # (auto) 0.8 10 ^3/uL (0-0.8); Eosinophils % (auto) 4.6 % (0.0-7.0); Hematocrit 25.1 % (41.0-53.0); Lymphocytes % (auto) 7.5 % (10.0-50.0); Mean Corpuscular Hemoglobin 26.3 pg (28.0-32.0); Mean Corpuscular Hgb Conc. 31.4 g/dL (32.0-36.0); Mean Corpuscular Volume 83.8 fL (80.0-100.0); Monocytes # (auto) 1.3 10 ^3/uL (0-1.3); Neutrophils # (auto) 14.7 10 ^3/uL (1.6-8.6); Neutrophils % (auto) 80.8 % (37.0-80.0); Red Blood Cells 2.99 10^6/uL (4.5-5.90); White Blood Cell 18.3 10^3/uL (4.4-10.8)
[2023-01-06 09:09] LABS: Anion Gap 17 (5-15); Chloride 94 mmol/L (98-107); Potassium 4.5 mmol/L (3.5-5.1); Sodium 120 mmol/L (136-145)
[2023-01-06 09:10] LABS: Albumin 2.6 g/dL (3.4-5.0); Blood Alcohol < 3.0 mg/dL (0-5); Calcium 8.6 mg/dL (8.5-10.1); Glucose 185 mg/dL (74-106); Magnesium 2.6 mg/dL (1.6-2.6)
[2023-01-06 09:16] LABS: Alanine Aminotransferase 25 U/L (16-61); Alkaline Phosphatase 87 U/L (45-117); Aspartate Aminotransferase 28 U/L (15-37); Bilirubin, Total 0.2 mg/dL (0.2-1.0); GFR African American 18 mL/min; GFR Non-African American 15 mL/min; Total Protein 7.2 g/dL (6.4-8.2)
[2023-01-06 09:37] LABS: BUN/Creatinine Ratio 40.4 (10.0-20.0)
[2023-01-06 09:39] LABS: Blood Urea Nitrogen 166 mg/dL (7-18); Carbon Dioxide 9 mmol/L (21-32)
[2023-01-06 11:16] LABS: Urine Bacteria NONE SEEN /hpf (None Seen); Urine Blood Negative /uL (Negative); Urine Specific Gravity 1.012 (1.001-1.035); Urine WBC 4 /hpf (0 - 3)
[2023-01-06] MEDS ORDERED: LORazepam 2MG/ML-1ML VIAL IV ONE (12:45)
[2023-01-06] MEDS ORDERED: SODIUM CHLORIDE 0.9% 1,000 ML IV ONE ×2 (14:30→20:15)
[2023-01-06] MEDS: CEFEPIME 1GM/ 50ML 50 ML IV SCH ×2 (14:30→22:31)
[2023-01-06] MEDS ORDERED: SODIUM BICARBONATE 50ML VIAL 50 ML in SOD CHL 0.45% 1,000 ML IV ONE (14:30)
[2023-01-06] MEDS: LINEZOLID 600MG/300ML 300 ML IV SCH (14:30)
[2023-01-06] MEDS ORDERED: MORPHINE SULFATE INJ 2 MG/ml SYRG IV PRN (14:45)
[2023-01-06] MEDS ORDERED: ACETAMINOPHEN 325 MG TAB PO PRN (14:45)
[2023-01-06] MEDS ORDERED: DOCUSATE SOD 100 MG CAP PO PRN (14:45)
[2023-01-06] MEDS ORDERED: NITROGLYCERIN 0.4 MG SL TAB SL PRN (14:45)
[2023-01-06] MEDS ORDERED: ONDANSETRON HCL 4 MG/2 ML VIAL IV PRN (14:45)
[2023-01-06 15:28] LABS: Alcohol, Urine < 3.0 mg/dL (0-10); Amphetamine Screen, Urine NEGATIVE (NEGATIVE); Barbiturate Scree,Urine NEGATIVE (NEGATIVE); Benzodiazephine Screen, Urine NEGATIVE (NEGATIVE); Cannabinoid Screen, Urine NEGATIVE (NEGATIVE); Cocaine Screen, Urine NEGATIVE (NEGATIVE); Opiate Scree,Urine NEGATIVE (NEGATIVE); Phencyclidine Screen, Urine NEGATIVE (NEGATIVE)
[2023-01-06] MEDS ORDERED: DEXTROSE (50%) 50ML SYRG IV PRN (16:00)
[2023-01-06] MEDS: ACCU-CHEK COMFORT CURVE STRIP VI SCH ×2 (17:17→20:19)
[2023-01-06] MEDS: InsuLIN REG 1unit/0.01ml Soln (100units/ml) SC SCH ×2 (17:33→20:19)
[2023-01-06 19:13] LABS: Calcium 8.3 mg/dL (8.5-10.1); Potassium 3.7 mmol/L (3.5-5.1)
[2023-01-06 19:15] LABS: BUN/Creatinine Ratio 41.2 (10.0-20.0)
[2023-01-06 19:30] VITALS: BP 132/54
[2023-01-06 19:35] VITALS: BP_SYST 149; BP_SYST 158; BP_DIAS 55; BP_DIAS 57
[2023-01-06 20:15] VITALS: BP 159/61
[2023-01-06 22:24] LABS: Calcium 8.4 mg/dL (8.5-10.1); Potassium 3.8 mmol/L (3.5-5.1)
[2023-01-06] MEDS: HEPARIN SODIUM (PORCINE) 5000 UNITS/ML 1ML VIAL SC SCH (22:31)
[2023-01-06 23:00] VITALS: BP 139/53
[2023-01-07] VITALS (23 sets, daily range): BP systolic 117–158; BP diastolic 41–97
[2023-01-07] MEDS: ACCU-CHEK COMFORT CURVE STRIP VI SCH ×6 (00:03→20:17)
[2023-01-07] MEDS: LINEZOLID 600MG/300ML 300 ML IV SCH ×2 (01:00→07:53)
[2023-01-07 02:29] LABS: BUN/Creatinine Ratio 43.8 (10.0-20.0); Potassium 3.6 mmol/L (3.5-5.1)
[2023-01-07 02:30] LABS: Calcium 8.4 mg/dL (8.5-10.1)
[2023-01-07 04:55] LABS: Basophils # (auto) 0 10 ^3/uL (0-0.2); Basophils % (auto) 0.1 % (0.0-2.0); Mean Corpuscular Hgb Conc. 34.2 g/dL (32.0-36.0); Red Blood Cells 2.65 10^6/uL (4.5-5.90)
[2023-01-07 04:57] LABS: Eosinophils # (auto) 0.9 10 ^3/uL (0-0.8); Eosinophils % (auto) 4.6 % (0.0-7.0); Hematocrit 21.1 % (41.0-53.0); Hemoglobin 7.2 g/dL (13.5-17.5); Lymphocytes # (auto) 0.9 10 ^3/uL (0.4-5.4); Lymphocytes % (auto) 4.6 % (10.0-50.0); Mean Corpuscular Hemoglobin 27.2 pg (28.0-32.0); Mean Corpuscular Volume 79.5 fL (80.0-100.0); Monocytes # (auto) 1.1 10 ^3/uL (0-1.3); Monocytes % (auto) 5.8 % (0.0-12.0); Neutrophils # (auto) 16.4 10 ^3/uL (1.6-8.6); Neutrophils % (auto) 84.9 % (37.0-80.0); Red Cell Distribution Width 15.7 % (11.8-14.3); White Blood Cell 19.3 10^3/uL (4.4-10.8)
[2023-01-07] MEDS: InsuLIN REG 1unit/0.01ml Soln (100units/ml) SC SCH ×6 (05:01→20:19)
[2023-01-07 05:11] LABS: Calcium 8.3 mg/dL (8.5-10.1); Potassium 3.6 mmol/L (3.5-5.1)
[2023-01-07 05:14] LABS: BUN/Creatinine Ratio 44.4 (10.0-20.0); Phosphorus 4.9 mg/dL (2.5-4.90)
[2023-01-07] MEDS: HEPARIN SODIUM (PORCINE) 5000 UNITS/ML 1ML VIAL SC SCH ×2 (07:53→22:08)
[2023-01-07] MEDS: CEFEPIME 1GM/ 50ML 50 ML IV SCH (07:53)
[2023-01-07] MEDS: SODIUM BICARBONATE 50ML VIAL 150 ML in D5W 5% 1,000 ML IV SCH (16:29)
[2023-01-07 18:55] LABS: BUN/Creatinine Ratio 42.7 (10.0-20.0); Calcium 8.7 mg/dL (8.5-10.1); Potassium 3.4 mmol/L (3.5-5.1)
[2023-01-08] VITALS (23 sets, daily range): BP systolic 136–164; BP diastolic 52–66
[2023-01-08] MEDS: ACCU-CHEK COMFORT CURVE STRIP VI SCH ×6 (00:45→20:00)
[2023-01-08] MEDS: InsuLIN REG 1unit/0.01ml Soln (100units/ml) SC SCH ×6 (00:46→20:00)
[2023-01-08] MEDS: SODIUM BICARBONATE 50ML VIAL 150 ML in D5W 5% 1,000 ML IV SCH ×2 (04:09→15:57)
[2023-01-08 05:04] LABS: Basophils # (auto) 0 10 ^3/uL (0-0.2); Hemoglobin 7.3 g/dL (13.5-17.5); Lymphocytes # (auto) 1.1 10 ^3/uL (0.4-5.4); Monocytes # (auto) 1.1 10 ^3/uL (0-1.3)
[2023-01-08 05:08] LABS: Basophils % (auto) 0.1 % (0.0-2.0); Eosinophils # (auto) 0.6 10 ^3/uL (0-0.8); Eosinophils % (auto) 3.3 % (0.0-7.0); Hematocrit 21.2 % (41.0-53.0); Lymphocytes % (auto) 6.3 % (10.0-50.0); Mean Corpuscular Hemoglobin 26.9 pg (28.0-32.0); Mean Corpuscular Hgb Conc. 34.4 g/dL (32.0-36.0); Mean Corpuscular Volume 78.2 fL (80.0-100.0); Monocytes % (auto) 6.1 % (0.0-12.0); Neutrophils # (auto) 14.8 10 ^3/uL (1.6-8.6); Neutrophils % (auto) 84.2 % (37.0-80.0); Red Blood Cells 2.72 10^6/uL (4.5-5.90); Red Cell Distribution Width 15.6 % (11.8-14.3); White Blood Cell 17.5 10^3/uL (4.4-10.8)
[2023-01-08 05:17] LABS: Calcium 9.4 mg/dL (8.5-10.1)
[2023-01-08 05:18] LABS: BUN/Creatinine Ratio 40.5 (10.0-20.0)
[2023-01-08] MEDS: DAKINS QUARTER STR 0.125% (NaHypochlorite) 473 ML TOPICAL SOL TOP SCH (07:29)
[2023-01-08] MEDS: HEPARIN SODIUM (PORCINE) 5000 UNITS/ML 1ML VIAL SC SCH ×2 (07:31→22:33)
[2023-01-08] MEDS: OXYCODONE W/ ACETAMINOPHEN 5/325MG TABLET PO PRN ×2 (09:12→18:24)
[2023-01-08] MEDS ORDERED: POTASSIUM CHL 20MEQ/100ML 100 ML IV ONE (12:30)
[2023-01-08] MEDS: POTASSIUM EFFERVESENT TAB 25 MEQ PO ONE ×2 (12:30→13:04)
[2023-01-08] MEDS: METOPROLOL SUCCINATE XL 50 MG TAB PO SCH ×3 (14:21→18:24)
[2023-01-08] MEDS: POTASSIUM CHL 20MEQ/100ML 100 ML IV SCH ×2 (15:56→17:55)
[2023-01-08] MEDS: hydrALAZINE HCL 20 MG/ML VL IV PRN (17:13)
[2023-01-08] MEDS: D5W/SOD CHL 0.45%/KCL 40MEQ 1,000 ML IV SCH (18:58)
[2023-01-09] VITALS (21 sets, daily range): BP systolic 127–177; BP diastolic 40–99
[2023-01-09] MEDS: hydrALAZINE HCL 20 MG/ML VL IV PRN ×2 (03:39→11:47)
[2023-01-09] MEDS: ACCU-CHEK COMFORT CURVE STRIP VI SCH ×6 (04:00→20:11)
[2023-01-09] MEDS: InsuLIN REG 1unit/0.01ml Soln (100units/ml) SC SCH ×6 (04:00→20:12)
[2023-01-09] MEDS: OXYCODONE W/ ACETAMINOPHEN 5/325MG TABLET PO PRN ×2 (05:00→12:54)
[2023-01-09 05:01] LABS: Basophils # (auto) 0 10 ^3/uL (0-0.2); Basophils % (auto) 0.2 % (0.0-2.0); Hematocrit 21.7 % (41.0-53.0); Nucleated Red Blood Cells % 0.1 %; White Blood Cell 19.1 10^3/uL (4.4-10.8)
[2023-01-09 05:03] LABS: Eosinophils # (auto) 1.2 10 ^3/uL (0-0.8); Eosinophils % (auto) 6.3 % (0.0-7.0); Hemoglobin 7.4 g/dL (13.5-17.5); Lymphocytes # (auto) 2.1 10 ^3/uL (0.4-5.4); Lymphocytes % (auto) 10.9 % (10.0-50.0); Mean Corpuscular Hemoglobin 26.7 pg (28.0-32.0); Mean Corpuscular Hgb Conc. 34.2 g/dL (32.0-36.0); Mean Corpuscular Volume 78.1 fL (80.0-100.0); Monocytes # (auto) 1.7 10 ^3/uL (0-1.3); Monocytes % (auto) 8.7 % (0.0-12.0); Neutrophils # (auto) 14.1 10 ^3/uL (1.6-8.6); Neutrophils % (auto) 73.9 % (37.0-80.0); Red Blood Cells 2.78 10^6/uL (4.5-5.90)
[2023-01-09 05:25] LABS: BUN/Creatinine Ratio 31.7 (10.0-20.0); Calcium 9.4 mg/dL (8.5-10.1); Potassium 3.2 mmol/L (3.5-5.1)
[2023-01-09 08:07] LABS: RPR Non Reactive (Non Reactive)
[2023-01-09] MEDS: D5W/SOD CHL 0.45%/KCL 40MEQ 1,000 ML IV SCH ×2 (08:17→13:04)
[2023-01-09] MEDS: HEPARIN SODIUM (PORCINE) 5000 UNITS/ML 1ML VIAL SC SCH (08:17)
[2023-01-09] MEDS: DAKINS QUARTER STR 0.125% (NaHypochlorite) 473 ML TOPICAL SOL TOP SCH (08:18)
[2023-01-09] MEDS: METOPROLOL SUCCINATE XL 50 MG TAB PO SCH (08:19)
[2023-01-09] MEDS: amLODIPine BESYLATE 5 MG TAB PO SCH (12:54)
[2023-01-09] MEDS ORDERED: MORPHINE SULFATE INJ 2 MG/ml SYRG IM ONE (13:45)
[2023-01-09] MEDS ORDERED: OXYCODONE W/ ACETAMINOPHEN 5/325MG TABLET PO ONE (13:45)
[2023-01-10] VITALS (11 sets, daily range): BP systolic 141–167; BP diastolic 24–67
[2023-01-10] MEDS: HEPARIN SODIUM (PORCINE) 5000 UNITS/ML 1ML VIAL SC SCH ×2 (01:47→08:37)
[2023-01-10] MEDS: OXYCODONE W/ ACETAMINOPHEN 5/325MG TABLET PO PRN ×2 (01:48→08:36)
[2023-01-10] MEDS: ACCU-CHEK COMFORT CURVE STRIP VI SCH ×5 (04:00→15:38)
[2023-01-10] MEDS: InsuLIN REG 1unit/0.01ml Soln (100units/ml) SC SCH ×5 (04:00→15:39)
[2023-01-10] MEDS: D5W/SOD CHL 0.45%/KCL 40MEQ 1,000 ML IV SCH ×2 (06:43→10:15)
[2023-01-10] MEDS: amLODIPine BESYLATE 5 MG TAB PO SCH (08:36)
[2023-01-10] MEDS: METOPROLOL SUCCINATE XL 50 MG TAB PO SCH (08:36)
[2023-01-10] MEDS ORDERED: CIPR-173 PO (11:27)
[2023-01-10] MEDS ORDERED: AML5T PO (11:27)
== END 2023-01-10 16:20 | disposition hospice, home (50) | DRG 871 ==
LOC: ER 07:59 → EDBD 07:59 → EDUNIT# 07:59 → TELE 14:38 → DOU IN ICU 19:05
PROVIDERS: ADMIT Internal Medicine; ATTEND Internal Medicine
DX: A41.9 Sepsis, unspecified organism (principal); G92.8 Other toxic encephalopathy; N17.9 Acute kidney failure, unspecified; E87.1 Hypo-osmolality and hyponatremia; E87.20 Acidosis, unspecified; E11.52 Type 2 diabetes mellitus with diabetic peripheral angiopathy with gangrene; I96 Gangrene, not elsewhere classified; I12.9 Hypertensive chronic kidney disease with stage 1 through stage 4 chronic kidney disease, or unspecified chronic kidney disease; Z66 Do not resuscitate; E11.22 Type 2 diabetes mellitus with diabetic chronic kidney disease; E11.621 Type 2 diabetes mellitus with foot ulcer; N18.31 Chronic kidney disease, stage 3a; F03.90 Unspecified dementia, unspecified severity, without behavioral disturbance, psychotic disturbance, mood disturbance, and anxiety; L97.529 Non-pressure chronic ulcer of other part of left foot with unspecified severity; Z20.822 Contact with and (suspected) exposure to COVID-19; E78.5 Hyperlipidemia, unspecified; E87.8 Other disorders of electrolyte and fluid balance, not elsewhere classified; Z82.49 Family history of ischemic heart disease and other diseases of the circulatory system; Z83.3 Family history of diabetes mellitus; Z89.422 Acquired absence of other left toe(s)
CPT/HCPCS: 36415; 70450; 71045; 73700; 76775; 80048; 80053; 80307; 80320; 81001; 82140; 82550; 82570; 82607; 82962; 83605; 83735; 84100; 84156; 84300; 84443; 85025; 86592; 87040; 87077; 87081; 87186; 87205; 87426; 93005; 93926; 97163; 99291; G0378; J1815; J3480